=== PATIENT | male | born 1950 | race Caucasian/White ===

== ENCOUNTER 2016-12-23 20:34 | Emergency (ER) | payer MEDICARE, OTHER ==
[2016-12-23 20:45] VITALS: BP 157/66
[2016-12-23] MEDS: Triamcinolone 0.5% OINT * 15 GM TUBE TOPICAL ONE ×2 (22:28→22:34)
--- NOTE | 2016-12-23 22:34 | ED ---
Skin Complaint - HPI Summary HPI Summary: Patient presents to ED with bilateral arm redness, mild pain, slight pruritis and some blistering after sun exposure 3 days ago. Patient is currently on week 3 of doxycycline for lyme rash and was told to avoid the sun. However, he spent a few hours in the sun days ago and did not use sun protection. Denies rash in other areas. Denies soap changes, medications changes, allergies or other known reactions. He denies exposure to known carito or oak. He has not been using anything for pain and inflammation. He is currently on several heart medications s/p heart surgery and cannot take ibuprofen. He has not done a thorough skin check since dx but remains outdoors often. He has never had a reaction like this before. Denies hx of skin cancer. - History of Current Complaint Chief Complaint: EDRashSkinAbscess Time Seen by Provider: 12/23/16 21:36 Stated Complaint: RASH ON ARMS Hx Obtained From: Patient Onset/Duration: Started Days Ago Skin Exposure Onset/Duration: Days Ago Timing: Constant Onset Severity: Moderate Current Severity: Moderate Pain Intensity: 8 Pain Scale Used: 0-10 Numeric Skin Location: Discrete, Arm Character: Pruritus, Pain, Hives, Raised Aggravating Symptom(s): Nothing Alleviating Symptom(s): Cold Compresses Associated Signs & Symptoms: Tenderness Related History: Insect Bite/Sting, Possible Reaction to: Environmental Exposure - Allergy/Home Medications Allergies/Adverse Reactions: Allergies Allergy/AdvReac Type Severity Reaction Status Date / Time NSAIDs AdvReac See Comment Verified 12/23/16 22:21 PNEUMOCOCCAL VACINE Allergy Rash Uncoded 12/23/16 22:21 PMH/Surg Hx/FS Hx/Imm Hx Previously Healthy: Yes Endocrine/Hematology History: Denies: Hx Diabetes, Hx Thyroid Disease Cardiovascular History: Reports: Hx Angina - 4 YEARS AGO, Hx Cardiomegaly, Hx Congestive Heart Failure - BETTER SINCE CARDIAC ABLATION IN 2008 & 2009, Hx Coronary Artery Disease - CHOLESTEROL CONTROL WITH MEDICATION, Hx Hypertension - CONTROL WITH MEDICATION, Hx Rheumatic Fever - AGE 11, Hx Valvular Heart Disease - AORTIC VALVE REPLACEMENT AND RECONSTRUCTION - 2001 Denies: Hx Pacemaker/ICD Comment Only: Hx Peripheral Vascular Disease - POSSIBLE Respiratory History: Denies: Hx Asthma, Hx Chronic Obstructive Pulmonary Disease (COPD) GI History: Reports: Hx Ulcer - IN THE PAST, NO PROBLEMS NOW History: Reports: Hx Kidney Stones, Other Problems/Disorders - ENLARGE PROSTATE Musculoskeletal History: Reports: Hx Arthritis - BACK, Hx Bursitis - LEFT ELBOW - NO PROBLEMS NOW Sensory History: Reports: Hx Cataracts - HISTORY OF Denies: Hx Contacts or Glasses, Hx Hearing Aid Opthamlomology History: Reports: Hx Cataracts - HISTORY OF Denies: Hx Contacts or Glasses Psychiatric History: Reports: Hx Depression Denies: Hx Panic Disorder - Surgical History Surgery Procedure, Year, and Place: AORTIC VALVE REPLACEMENT AND RECONSTRUCTION , 2001, [facility]- (pt bringing the card - safe for 1.5t). RIGHT CATARACT SURGERY WITH IOL IMPLANT, 2002, [facility] [place] [facility]. LAPAROSCOPIC CHOLECYSTECTOMY, 2009 [facility]. LEFT CATARACT SURGERY WITH IOL IMPLANT, 2010, [facility] [place]. RIGHT CARDIAC ABLATION, 2008, [facility]. LEFT CARDIAC ABLATION, 2009, [facility] Hx Anesthesia Reactions: No - Immunization History Hx Pertussis Vaccination: No Immunizations Up to Date: Unable to Obtain/Confirm Infectious Disease History: No Infectious Disease History: Denies: Hx Hepatitis, Hx Human Immunodeficiency Virus (HIV), Traveled Outside the US in Last 30 Days - Family History Known Family History: Positive: Cardiac Disease, Hypertension - Social History Occupation: Unemployed Lives: With Family Alcohol Use: None Hx Substance Use: No Substance Use Type: Reports: None Hx Tobacco Use: No Smoking Status (MU): Former Smoker Review of Systems Constitutional: Negative Eyes: Negative Cardiovascular: Negative Respiratory: Negative Genitourinary: Negative Positive: no symptoms reported, see HPI Positive: Rash Neurological: Negative Psychological: Normal All Other Systems Reviewed And Are Negative: Yes Physical Exam Triage Information Reviewed: Yes Vital Signs On Initial Exam: Initial Vitals Temp Pulse Resp BP Pulse Ox 97.4 F 68 16 157/66 96 12/23/16 20:40 12/23/16 20:40 12/23/16 20:40 12/23/16 20:40 12/23/16 20:40 Vital Signs Reviewed: Yes Appearance: Positive: Well-Appearing, Well-Nourished Skin: Positive: Warm, Skin Color Reflects Adequate Perfusion, Other - erythematous blanchable confluent areas bilaterally over dorsum of forearms with mild blistering. Pruritis and mild pain Head/Face: Positive: Normal Head/Face Inspection Eyes: Positive: EOMI, LISSET, Conjunctiva Clear Neck: Positive: Supple, Nontender, No Lymphadenopathy Respiratory/Lung Sounds: Positive: Clear to Auscultation, Breath Sounds Present Cardiovascular: Positive: Normal, RRR, Pulses are Symmetrical in both Upper and Lower Extremities Musculoskeletal: Positive: Normal, Strength/ROM Intact Neurological: Positive: Alert, Oriented to Person Place, Time, Speech Normal Psychiatric: Positive: Normal AVPU Assessment: Alert - Libra Coma Scale Best Eye Response: 4 - Spontaneous Best Motor Response: 6 - Obeys Commands Best Verbal Response: 5 - Oriented Diagnostics - Vital Signs Vital Signs Temp Pulse Resp BP Pulse Ox 12/23/16 22:20 97.4 F 68 16 157/66 96 12/23/16 20:40 97.4 F 68 16 157/66 96 - Laboratory Lab Statement: Any lab studies that have been ordered have been reviewed, and results considered in the medical decision making process. Course/Dx - Course Course Of Treatment: erythematous blanchable confluent areas bilaterally over dorsum of forearms with mild blistering. Pruritis and mild pain. Patient is currently taking doxycylcline and sustained a sunburn. Prednisone given x 4 days, triamcinalone cream. Encouraged OTC benadryl or other antihistamine only if itching remains. - Differential Diagnoses - Skin Complaint Differential Diagnoses: Drug Rash, Local Allergic Reaction, Urticaria - Diagnoses Provider Diagnoses: Sun exposure, moderate Discharge - Discharge Plan Condition: Stable Disposition: HOME Prescriptions: predniSONE TAB* [Deltasone TAB*] 50 mg PO DAILY #4 tab Patient Education Materials: Doxycycline (By mouth), Photosensitivity (ED), Cold Compress or Soak (ED) Referrals: Mariluz Clifton MD [Primary Care Provider] - Additional Instructions: You have been dx with photosensitivity from a reaction to your doxycycline. Continue to perform skin check daily and dislodge any ticks with tweezers Traimacinalone cream to the area twice daily until symptoms resolve or for 5 days If you develop itching not controlled with the ointment, you may take a benadryl - but do not drive on this medication Prednisone daily for 4 days
== END 2016-12-23 22:32 | disposition home or self-care (01) ==
LOC: ED 20:34
DX: R21 Rash and other nonspecific skin eruption (principal); M79.602 Pain in left arm; L50.9 Urticaria, unspecified; M79.601 Pain in right arm; X32.XXXA Exposure to sunlight, initial encounter; Z87.891 Personal history of nicotine dependence
CPT/HCPCS: 99281; A9270-GY

== ENCOUNTER 2019-02-22 13:01 | Emergency (ER) | payer MEDICARE, OTHER ==
--- OUTSIDE RECORDS SUMMARY | 2019-02-22 13:15 | XMS REPORT | Summary of Care ---
:1950 Author Organization [facility] Address [address] [place] [address] Care Team Providers Name Role Phone Mariluz Clifton MD Primary Care Provider Reason for Visit Reason Comments Follow Up 6mon f/u paroxysmal atrial fibrillation, pt state he is feeling well Encounter Details Date Type Department Care Team Description 02/08/2019 Office Visit Amber Schwarz, Paroxysmal atrial fibrillation (HCC) (Primary Dx); Cardiology [facility] ASHD (arteriosclerotic heart disease); [address] [facility] [address]; [place] [address] [place] [id number] Essential hypertension; [phone] Dyslipidemia Allergies Active Allergy Reactions Severity Noted Date Comments Allergy Other 02/25/2016 C-Diff. W/ antibiotics Pneumococcal Vaccines Rash 12/24/2008 Rash at injection site documented as of this encounter (statuses as of 02/08/2019) Medications Medication Sig Dispensed Refills Start Date End Date Status finasteride (PROSCAR) 5 Take 5 mg by 0 Active MG Oral Tab mouth DAILY. escitalopram (LEXAPRO) 5 Take 10 mg by 0 Active MG Oral Tab mouth DAILY. atorvastatin (LIPITOR) Take 1 Tab by 90 Tab 3 09/05/2014 Active 40 MG Oral Tab mouth DAILY. meclizine (ANTIVERT) 25 Take 25 mg by 0 Active MG Oral Tab mouth THREE TIMES DAILY NEEDED. allopurinol (ZYLOPRIM) Take 100 mg by 0 Active 100 MG Oral Tab mouth DAILY. OXYcodone Take 5 mg by 0 Active (OXY-IR,OXY-FAST) 5 MG mouth NEEDED. Oral Tab Cholecalciferol (VITAMIN Take by mouth 0 Active D-3) 1000 UNITS Oral Cap DAILY. carvedilol (COREG) 25 MG Take 25 mg by 60 Tab 0 06/11/2016 Active Oral Tab mouth TWO TIMES DAILY WITH MEALS. lisinopril (PRINIVIL, Take 5 mg by 0 Active ZESTRIL) 5 MG Oral Tab mouth DAILY. aspirin (ECOTRIN) 81 MG Take 81 mg by 0 Active Oral Tab EC mouth DAILY. warfarin (COUMADIN) 5 MG Take 5 mg by 0 Active Oral Tab mouth DIRECTED. nitroglycerin Place 1 Tab 25 Tab 0 02/02/2018 Active (NITROSTAT) 0.4 MG under tongue Sublingual SL Tab EVERY FIVE MINUTES NEEDED for chest pain. documented as of this encounter (statuses as of 02/08/2019) Active Problems Problem Noted Date URI (upper respiratory infection) 10/14/2016 History of heart valve replacement 10/14/2016 Long-term (current) use of anticoagulants 10/14/2016 Gout 08/07/2015 BMI 30.0-30.9,adult 06/12/2013 Aortic insufficiency 02/04/2011 Overview: 12/29/01 () Aortic root replacement with #29 [employer]onic-Hayden Hemashield conduit on cardiopulmonary bypass with reimplantation of the coronary arteries ASHD (arteriosclerotic heart disease) 02/04/2011 Overview: 11/30/08 Cath () Moderate disease affecting all three coronary vessels Atrial fibrillation 01/14/2009 Overview: 11/27/08 () Pulmonary vein ablation 08/06/08 () Electrocardioversion; Dilated cardiomyopathy 09/27/2008 Overview: Ejection fraction is about 30%. Atrial flutter 08/20/2004 Unspecified pleural effusion 08/22/2003 HTN (hypertension) 08/22/2003 Other and unspecified hyperlipidemia 08/22/2003 Personal history of tobacco use, presenting hazards to health 08/22/2003 Thoracic aneurysm without mention of rupture 08/22/2003 Personal history of urinary calculi 08/22/2003 documented as of this encounter (statuses as of 02/08/2019) Resolved Problems Problem Noted Date Resolved Date Cardiomyopathy 02/04/2011 02/04/2011 Overview: Ejection fraction is about 30%. 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 02/04/2011 Heart disease, unspecified 08/22/2003 02/04/2011 documented as of this encounter (statuses as of 02/08/2019) Immunizations Name Administration Dates Next Due PNEUMOCOCCAL POLYSACCHARIDE VACCINE 12/01/2008 documented as of this encounter Social History Tobacco Use Types Packs/Day Years Used Date Former Smoker Cigarettes 1 10 Quit: 07/25/1980 Smokeless Tobacco: Never Used Alcohol Use Drinks/Week oz/Week Comments No 0 Standard drinks or equivalent 0.0 Sex Assigned at Date Recorded Not on file Job Start Date Occupation Industry Not on file Not on file Not on file Travel History Travel Start Travel End No recent travel history available. documented as of this encounter Last Filed Vital Signs Vital Sign Reading Time Taken Comments Blood Pressure 118/60 02/08/2019 11:02 AM EDT Pulse 62 02/08/2019 11:02 AM EDT Temperature - - Respiratory Rate - - Oxygen Saturation - - Inhaled Oxygen Concentration - - Weight 87.5 kg (193 lb) 02/08/2019 11:02 AM EDT Height 167.6 cm (5' 6") 02/08/2019 11:02 AM EDT Body Mass Index 31.15 02/08/2019 11:02 AM EDT documented in this encounter Patient Instructions Patient InstructionsHuAmber martinez CRNP - 02/08/2019 11:00 AM EDTContinue to follow blood work with [facility]. Follow up in 6 months, or sooner if there are any changes in your symptoms. Continue with strict risk factor modification; especially increasing cardiovascular activity, low fat low cholesterol diet and weight management. Would like to see Blood pressure less than 130/80 and trying to keep LDL less than 70. Any further questions or concerns contact our office. documented in this encounter Plan of Treatment Name Type Priority Associated Diagnoses Order Schedule AMBULATORY 12 LEAD EKG EKG Routine Paroxysmal atrial Ordered: 02/08/2019 (GLOBAL) fibrillation (HCC) COMPREHENSIVE METABOLIC Lab Routine Paroxysmal atrial Expected: 02/08/2019 PANEL fibrillation (HCC) (Approximate), Dyslipidemia Expires: 02/09/2020 LIPID PROFILE Lab Routine Paroxysmal atrial Expected: 02/08/2019 fibrillation (HCC) (Approximate), Dyslipidemia Expires: 02/09/2020 Health Maintenance Due Date Last Done Comments MEDICARE ANNUAL WELLNESS 1950 VISIT DEPRESSION SCREENING 1960 HIV SCREENING 1963 HEPATITIS C SCREENING 1988 ZOSTER IMMUNIZATION SERIES 1998 (1 of 2) FALL RISK ASSESSMENT 2013 PNEUMOCOCCAL 65+YRS (1 of 2 2013 12/01/2008 - PCV13) DIABETES SCREENING 02/02/2019 02/02/2018, 11/02/2016, 11/02/2016, Additional history exists LIPID DISORDER SCREENING 02/02/2019 02/02/2018, 07/26/2014, 08/14/2011, Additional history exists INFLUENZA VACCINE (#1) 2019 04/22/2017, 03/22/2016 COLONOSCOPY SCREENING 01/13/2022 01/13/2017, 01/13/2017 AAA SCREENING/SURVEILLANCE Completed 02/25/2016 HPV IMMUNIZATION SERIES Aged Out No longer eligible based on patient's age to complete this topic MENINGOCOCCAL VACCINE IMM Aged Out No longer eligible based on patient's age to complete this topic documented as of this encounter Implants Implanted Type Area Welder Apprentice Device Shelf Model / Identifier Expiration Serial / Date Lot Hayden Valved Collagen Conduit-12/29/2001 Valve Heart [employer] [id number] / Implanted: Qty: 1 on 12/29/2001 by Umberto Acuña MD Aortic [id number] / Description:MRI safe up to 3T documented as of this encounter Results Not on filedocumented in this encounter Visit Diagnoses Diagnosis Paroxysmal atrial fibrillation (HCC) - Primary Atrial fibrillation ASHD (arteriosclerotic heart disease) Coronary atherosclerosis of unspecified type of vessel, pechanga or graft S/P AVR Heart valve replaced by other means Essential hypertension Unspecified essential hypertension Dyslipidemia Other and unspecified hyperlipidemia documented in this encounter Insurance Payer Benefit Plan / Subscriber ID Effective Dates Phone Address Type Group MEDICARE MEDICARE PART A xxxxxxxxxxx Effective for Medicare & B all dates AETNA COMMERCIAL AETNA xxxxxxxxxx Effective for Aetna all dates Guarantor Name Account Type Relation to Date of Phone Billing Patient Address [place] Personal/Family 1950 [address] [phone] [place], [place] (Work) [id number] documented as of this encounter
[2019-02-22 13:41] LABS: ABS Eosinophils 0.1 10^3/ul (0-0.6); ABS Monocytes 0.5 10^3/ul (0-0.8); Hematocrit 40 % (42-52); Hemoglobin 13.4 g/dL (14.0-18.0); Lymphocyte % 21.2 %; Mean Corpuscular HGB Conc 34 g/dL (31-36); Mean Corpuscular Hemoglobin 29 pg (27-31); Mean Corpuscular Volume 86 fL (80-94); Mean Platelet Volume 6.5 fL (7.4-10.4); Platelet Count 173 10^3/uL (150-450); Red Blood Count 4.59 10^6 /uL (4.18-5.48); Red Cell Distribution Width 16 % (10-15); White Blood Count 4.5 10^3/uL (3.5-10.8)
[2019-02-22 14:00] LABS: Albumin 4.2 g/dL (3.2-5.2); Albumin/Globulin Ratio 1.6 (1-3); BUN/Creatinine Ratio 20.2 (8-20); Calcium 9.5 mg/dL (8.6-10.3); EGFR African American 102.3 (>60); EGFR Non-African American 84.5 (>60); Globulin 2.6 g/dL (2-4); Potassium 4.3 mmol/L (3.5-5.0); Total Bilirubin 1.4 mg/dL (0.2-1.0); Total Protein 6.8 g/dL (6.4-8.9)
[2019-02-22 15:25] LABS: Urine Appearance Clear; Urine Bilirubin Negative (Negative); Urine Blood Negative (Negative); Urine Color Yellow; Urine Glucose Negative (Negative); Urine Ketones Negative (Negative); Urine Nitrite Negative (Negative); Urine Protein Negative (Negative); Urine Specific Gravity 1.018 (1.010-1.030); Urine Urobilinogen Negative (Negative)
[2019-02-22] MEDS ORDERED: Acetaminophen TAB* 325 MG PO ONE (15:36)
--- NOTE | 2019-02-22 15:38 | ED ---
Abdominal Pain/Male - HPI Summary HPI Summary: This patient is a 68 year old M presenting to [facility] accompanied by his with a chief complaint of constant lower ABD pain since 3 weeks ago. Pt states this pain radiates to his back. PMHx of HTN and kidney stones. The patient rates the pain 10/10 in severity. Symptoms aggravated by starting movement. Symptoms alleviated by rest. Patient denies fever, chills, nausea, vomiting, diarrhea, constipation, dysuria, hematuria, testicular pain. Medications reviewed. Allergies noted. Pt does not smoke, drink alcohol, or use drugs. - History of Current Complaint Chief Complaint: EDFlankPain Stated Complaint: LOWER ABD/FLANK PAIN PER PT Time Seen by Provider: 02/22/19 15:11 Hx Obtained From: Patient Onset/Duration: Sudden Onset, Lasting Weeks - 3, Still Present Timing: Constant Severity Initially: Severe Severity Currently: Severe Pain Intensity: 10 Pain Scale Used: 0-10 Numeric Radiates: Yes Radiates to: Back Aggravating Factor(s): Other: - starting movement Alleviating Factor(s): Other: - rest Associated Signs And Symptoms: Positive: Other - positive - lower ABD pain. negative - chills, constipation, dysuria, hematuria, testicular pain.. Negative : Fever, Nausea, Vomiting, Diarrhea - Allergies/Home Medications Allergies/Adverse Reactions: Allergies Allergy/AdvReac Type Severity Reaction Status Date / Time MS NSAIDs [NSAIDs] AdvReac See Comment Verified 12/23/16 22:21 PNEUMOCOCCAL VACINE Allergy Rash Uncoded 12/23/16 22:21 Home Medications: Home Medications Cholecalciferol (Vitamin D3) [Vitamin D3] 2,000 unit PO QAM 02/22/19 [History Confirmed 02/22/19] Escitalopram * [Lexapro *] 10 mg PO QPM 02/22/19 [History Confirmed 02/22/19] Warfarin TAB(*) [Coumadin TAB(*)] 2.5 mg PO MOWE 02/22/19 [History Confirmed 05/02] oxyCODONE TAB* [Roxycodone TAB 5 mg*] 5 mg PO Q6H PRN 02/22/19 [History Confirmed 02/22/19] PMH/Surg Hx/FS Hx/Imm Hx Previously Healthy: No Endocrine/Hematology History: Denies: Hx Diabetes, Hx Thyroid Disease Cardiovascular History: Reports: Hx Angina - 4 YEARS AGO, Hx Cardiomegaly, Hx Congestive Heart Failure - BETTER SINCE CARDIAC ABLATION IN 2008 & 2009, Hx Coronary Artery Disease - CHOLESTEROL CONTROL WITH MEDICATION, Hx Hypertension - CONTROL WITH MEDICATION, Hx Rheumatic Fever - AGE 11, Hx Valvular Heart Disease - AORTIC VALVE REPLACEMENT AND RECONSTRUCTION - 2001 Denies: Hx Pacemaker/ICD Comment Only: Hx Peripheral Vascular Disease - POSSIBLE Respiratory History: Denies: Hx Asthma, Hx Chronic Obstructive Pulmonary Disease (COPD) GI History: Reports: Hx Ulcer - IN THE PAST, NO PROBLEMS NOW History: Reports: Hx Kidney Stones, Other Problems/Disorders - ENLARGE PROSTATE Musculoskeletal History: Reports: Hx Arthritis - BACK, Hx Bursitis - LEFT ELBOW - NO PROBLEMS NOW Sensory History: Reports: Hx Cataracts - HISTORY OF Denies: Hx Contacts or Glasses, Hx Hearing Aid Opthamlomology History: Reports: Hx Cataracts - HISTORY OF Denies: Hx Contacts or Glasses Psychiatric History: Reports: Hx Depression Denies: Hx Panic Disorder - Surgical History Surgical History: Yes Surgery Procedure, Year, and Place: AORTIC VALVE REPLACEMENT AND RECONSTRUCTION , 2001, [facility]- (pt bringing the card - safe for 1.5t). RIGHT CATARACT SURGERY WITH IOL IMPLANT, 2002, [facility]. LAPAROSCOPIC CHOLECYSTECTOMY, 2009 [facility]. LEFT CATARACT SURGERY WITH IOL IMPLANT, 2010, [facility]. RIGHT CARDIAC ABLATION, 2008, [facility]. LEFT CARDIAC ABLATION, 2009, [facility] Hx Anesthesia Reactions: No Infectious Disease History: No Infectious Disease History: Denies: Hx Hepatitis, Hx Human Immunodeficiency Virus (HIV), Traveled Outside the US in Last 30 Days - Family History Known Family History: Positive: Cardiac Disease, Hypertension - Social History Alcohol Use: None Hx Substance Use: No Substance Use Type: Reports: None Hx Tobacco Use: No Smoking Status (MU): Former Smoker Review of Systems Negative: Fever, Chills Positive: Abdominal Pain - lower ABD pain radiating to his back. Negative: Vomiting, Diarrhea, Nausea Genitourinary: Other - negative - constipation, testicular pain Negative: dysuria, hematuria All Other Systems Reviewed And Are Negative: Yes Physical Exam - Summary Physical Exam Summary: Constitutional: Well-developed, Well-nourished, Alert. (-) Distressed Skin: Warm, Dry HENT: Normocephalic; Atraumatic Eyes: Conjunctiva normal Neck: Musculoskeletal ROM normal neck. (-) JVD, (-) Stridor, (-) Tracheal deviation Cardio: Rhythm regular, rate normal, Heart sounds normal; Intact distal pulses; The pedal pulses are 2+ and symmetric. Radial pulses are 2+ and symmetric. (-) Murmur Pulmonary/Chest wall: Effort normal. (-) Respiratory distress, (-) Wheezes, (-) Rales Abd: Soft, (-) tenderness, (-) Distension, (-) Guarding, (-) Rebound Musculoskeletal: (-) Edema. Right paraspinal tenderness. Pain when he sat up from lying position. Lymph: (-) Cervical adenopathy Neuro: Alert, Oriented x3 Psych: Mood and affect Normal Triage Information Reviewed: Yes Vital Signs On Initial Exam: Initial Vitals Temp Pulse Resp BP Pulse Ox 98.0 F 65 14 154/80 96 02/22/19 13:03 02/22/19 13:03 02/22/19 13:03 02/22/19 13:03 02/22/19 13:03 Vital Signs Reviewed: Yes Diagnostics - Vital Signs Vital Signs Temp Pulse Resp BP Pulse Ox 02/22/19 15:15 61 170/72 96 02/22/19 15:14 61 96 02/22/19 14:59 98.3 F 63 18 137/72 94 02/22/19 13:03 98.0 F 65 14 154/80 96 - Laboratory Lab Results: Lab Results 02/22/19 02/22/19 02/22/19 Range/Units 13:32 13:32 15:15 WBC 4.5 (3.5-10.8) 10^3/uL RBC 4.59 (4.18-5.48) 10^6 /uL Hgb 13.4 L (14.0-18.0) g/dL Hct 40 L (42-52) % MCV 86 (80-94) fL MCH 29 (27-31) pg MCHC 34 (31-36) g/dL RDW 16 H (10-15) % Plt Count 173 (150-450) 10^3/uL MPV 6.5 L (7.4-10.4) fL Neut % (Auto) 66.1 % Lymph % (Auto) 21.2 % Upson % (Auto) 10.0 % Eos % (Auto) 2.0 % Baso % (Auto) 0.7 % Absolute Neuts (auto) 3.0 (1.5-7.7) 10^3/ul Absolute Lymphs (auto) 1.0 (1.0-4.8) 10^3/ul Absolute Monos (auto) 0.5 (0-0.8) 10^3/ul Absolute Eos (auto) 0.1 (0-0.6) 10^3/ul Absolute Basos (auto) 0.0 (0-0.2) 10^3/ul Absolute Nucleated RBC 0.0 10^3/ul Nucleated RBC % 0.0 Sodium 140 (135-145) mmol/L Potassium 4.3 (3.5-5.0) mmol/L Chloride 107 (101-111) mmol/L Carbon Dioxide 27 (22-32) mmol/L Anion Gap 6 (2-11) mmol/L BUN 18 (6-24) mg/dL Creatinine 0.89 (0.67-1.17) mg/dL Est GFR ( Amer) 102.3 (>60) Est GFR (Non-Af Amer) 84.5 (>60) BUN/Creatinine Ratio 20.2 H (8-20) Glucose 136 H (70-100) mg/dL Calcium 9.5 (8.6-10.3) mg/dL Total Bilirubin 1.40 H (0.2-1.0) mg/dL AST 22 (13-39) U/L ALT 18 (7-52) U/L Alkaline Phosphatase 92 (34-104) U/L Total Protein 6.8 (6.4-8.9) g/dL Albumin 4.2 (3.2-5.2) g/dL Globulin 2.6 (2-4) g/dL Albumin/Globulin Ratio 1.6 (1-3) Urine Color Yellow Urine Appearance Clear Urine pH 6.0 (5-9) Ur Specific [place] 1.018 (1.010-1.030) Urine Protein Negative (Negative) Urine Ketones Negative (Negative) Urine Blood Negative (Negative) Urine Nitrate Negative (Negative) Urine Bilirubin Negative (Negative) Urine Urobilinogen Negative (Negative) Ur Leukocyte Esterase Negative (Negative) Urine Glucose Negative (Negative) Result Diagrams: 02/22/19 13:32 02/22/19 13:32 Lab Statement: Any lab studies that have been ordered have been reviewed, and results considered in the medical decision making process. - CT Abd/Pel CT Interpretation Completed By: Radiologist Summary of CT Findings: IMPRESSION: BILATERAL PUNCTATE NONOBSTRUCTING RENAL CALYCEAL STONES. These findings were reviewed by Dr. Patiño. Abdominal Pain Male Course/Dx - Course Course Of Treatment: Patient is here with right flank pain that runs into his groin. Upon arrival, patient has a overall benign exam onset of pain in his lower back with movement. Patient had negative CBC, CMP, UA for any abnormality. Patient had negative CT scan for nephrolithiasis or abdominal aortic aneurysm. Patient was discharged with instructions take Tylenol and was prescribed lidocaine patches. - Diagnoses Provider Diagnoses: Low back pain, Flank pain Discharge ED - Sign-Out/Discharge Documenting (check all that apply): Patient Departure - discharge Patient Received Moderate/Deep Sedation with Procedure: No - Discharge Plan Condition: Stable Disposition: HOME Prescriptions: Lidocaine PATCH 5%* [Lidoderm 5% Patch*] 1 patch TRANSDERM DAILY 7 Days #7 patch Patient Education Materials: Low Back Strain (ED) Referrals: Mariluz Clifton MD [Primary Care Provider] - Additional Instructions: Please take Tylenol for pain Please use your prescribed lidocaine patches Please call your primary care doctor to set up appointment in the next 1-3 days Return if you have fever, worsening pain, difficulty going to the bathroom, vomiting, any other concerning symptoms - Billing Disposition and Condition Condition: STABLE Disposition: Home - Attestation Statements Document Initiated by Erma: Yes Documenting Scribe: Jeromy Ariza Provider For Whom Erma is Documenting (Include Credential): Dr. Brian Patiño MD Scribe Attestation: Jeromy Beal scribed for Dr. Brian Patiño MD on 02/22/19 at 1734. Scribe Documentation Reviewed: Yes Provider Attestation: The documentation as recorded by the Jeromy seo accurately reflects the service I personally performed and the decisions made by me, Dr. Brian Patiño MD Status of Scribe Document: Viewed
[2019-02-22 17:11] VITALS: BP 136/64
== END 2019-02-22 17:01 | disposition home or self-care (01) ==
LOC: ED 13:01
DX: M54.5 Low back pain (principal); R10.30 Lower abdominal pain, unspecified; N20.0 Calculus of kidney; I25.119 Atherosclerotic heart disease of native coronary artery with unspecified angina pectoris; I11.0 Hypertensive heart disease with heart failure; I50.9 Heart failure, unspecified; Z95.2 Presence of prosthetic heart valve; Z87.891 Personal history of nicotine dependence; Z79.01 Long term (current) use of anticoagulants; Z79.82 Long term (current) use of aspirin; Z79.899 Other long term (current) drug therapy; Z88.6 Allergy status to analgesic agent; Z88.7 Allergy status to serum and vaccine
CPT/HCPCS: 36415; 74176; 80053; 81003; 85025; 99283; A9270-GY

== ENCOUNTER 2020-03-26 19:28 | Inpatient (IN) ==
[2020-03-26 20:14] LABS: ABS Eosinophils 0.1 10^3/ul (0-0.6); ABS Monocytes 0.5 10^3/ul (0-0.8); ABS Neutrophils 3.1 10^3/ul (1.5-7.7); Eosinophil % 1.6 %; Hematocrit 37 % (42-52); Hemoglobin 12.8 g/dL (14.0-18.0); Lymphocyte % 21.3 %; Mean Corpuscular HGB Conc 35 g/dL (31-36); Mean Corpuscular Hemoglobin 30 pg (27-31); Mean Corpuscular Volume 87 fL (80-94); Mean Platelet Volume 6.4 fL (7.4-10.4); Platelet Count 161 10^3/uL (150-450); Red Blood Count 4.24 10^6 /uL (4.18-5.48); Red Cell Distribution Width 16 % (10-15); White Blood Count 4.7 10^3/uL (3.5-10.8)
[2020-03-26 20:28] LABS: INR 3.06 (0.82-1.09)
[2020-03-26 20:30] LABS: Albumin 4.1 g/dL (3.2-5.2); Albumin/Globulin Ratio 1.5 (1-3); BUN/Creatinine Ratio 28.8 (8-20); Calcium 9.1 mg/dL (8.6-10.3); EGFR African American 115.3 (>60); EGFR Non-African American 95.3 (>60); Globulin 2.8 g/dL (2-4); Potassium 3.9 mmol/L (3.5-5.0); Total Bilirubin 1.2 mg/dL (0.2-1.0); Total Protein 6.9 g/dL (6.4-8.9)
[2020-03-26] MEDS ORDERED: Iohexol 350 (CONTRAST) 500 ML MDV IV ONE (20:45)
[2020-03-27] MEDS ORDERED: hydrALAZINE 20 mg/ml 1 ML Vial IV IV SLOW PU ONE (00:14)
[2020-03-27] MEDS ORDERED: hydrALAZINE 20 mg/ml 1 ML Vial IV ONE (00:34)
[2020-03-27 04:29] LABS: Troponin I 0.02 ng/mL (<0.03)
[2020-03-27] MEDS ORDERED: Labetalol IV 5 MG/ML 20 ml VIAL IV PUSH ONE (04:58)
[2020-03-27 05:04] LABS: ABS Eosinophils 0.1 10^3/ul (0-0.6); ABS Lymphocytes 0.7 10^3/ul (1.0-4.8); ABS Monocytes 0.7 10^3/ul (0-0.8); ABS Neutrophils 4.3 10^3/ul (1.5-7.7); Eosinophil % 1.6 %; Hematocrit 39 % (42-52); Lymphocyte % 12.6 %; Mean Corpuscular HGB Conc 33 g/dL (31-36); Mean Corpuscular Hemoglobin 29 pg (27-31); Mean Corpuscular Volume 87 fL (80-94); Mean Platelet Volume 6.4 fL (7.4-10.4); Platelet Count 170 10^3/uL (150-450); Red Cell Distribution Width 16 % (10-15); White Blood Count 5.9 10^3/uL (3.5-10.8)
[2020-03-27 05:22] LABS: ALT 15 U/L (7-52); AST 19 U/L (13-39); Albumin/Globulin Ratio 1.4 (1-3); Alkaline Phosphatase 87 U/L (34-104); BUN/Creatinine Ratio 26.4 (8-20); Blood Urea Nitrogen 19 mg/dL (6-24); CO2 Carbon Dioxide 24 mmol/L (22-32); Calcium 9.1 mg/dL (8.6-10.3); Chloride 111 mmol/L (101-111); EGFR African American 130.2 (>60); EGFR Non-African American 107.6 (>60); Globulin 2.8 g/dL (2-4); Glucose 126 mg/dL (70-100); Magnesium 1.8 mg/dL (1.9-2.7); Phosphorus 2.1 mg/dL (2.5-5.0); Potassium 3.8 mmol/L (3.5-5.0); Sodium 135 mmol/L (135-145); Total Protein 6.8 g/dL (6.4-8.9)
[2020-03-27] MEDS ORDERED: Magnesium Sulfate IV 1GM/100ML 1 GM/100 ML BAG IV ONE (05:39)
[2020-03-27 05:41] LABS: INR 2.57 (0.82-1.09)
[2020-03-27 05:42] LABS: Activated Partial Thrombo Time 39.1 seconds (26.0-38.0)
[2020-03-27] MEDS: NS 0.9% 1000 ml BAG 1,000 ML IV SCH ×2 (05:53→20:16)
[2020-03-27] MEDS ORDERED: levETIRAcetam 1000MG IVPREMIX 1,000 MG/100 ML BAG IVPB ONE (06:56)
[2020-03-27] MEDS: Erythromycin OPTH OINT APPLIC OINT RIGHT EYE SCH ×3 (07:42→21:34)
[2020-03-27] MEDS: Cholecalciferol (VIT D3) 1,000 unit TAB PO SCH (08:45)
[2020-03-27] MEDS: Senna TAB 8.6 mg TAB PO SCH (08:45)
[2020-03-28 06:19] LABS: Activated Partial Thrombo Time 34.4 seconds (26.0-38.0); INR 1.97 (0.82-1.09)
[2020-03-28 06:22] LABS: Albumin 3.8 g/dL (3.2-5.2); Albumin/Globulin Ratio 1.4 (1-3); BUN/Creatinine Ratio 27.3 (8-20); Calcium 9.2 mg/dL (8.6-10.3); Globulin 2.8 g/dL (2-4); Potassium 4.5 mmol/L (3.5-5.0); Total Bilirubin 1.9 mg/dL (0.2-1.0); Total Protein 6.6 g/dL (6.4-8.9)
[2020-03-28] MEDS: levETIRAcetam 500 MG IVPREMIX 500 MG/100 ML BAG IV SCH ×2 (06:30→18:20)
[2020-03-28 08:14] LABS: ABS Lymphocytes 0.6 10^3/ul (1.0-4.8); ABS Monocytes 0.8 10^3/ul (0-0.8); ABS Neutrophils 6.1 10^3/ul (1.5-7.7); Eosinophil % 0.4 %; Hematocrit 36 % (42-52); Hemoglobin 12.4 g/dL (14.0-18.0); Lymphocyte % 8.2 %; Mean Corpuscular HGB Conc 34 g/dL (31-36); Mean Corpuscular Hemoglobin 30 pg (27-31); Mean Corpuscular Volume 87 fL (80-94); Platelet Count 152 10^3/uL (150-450); Red Blood Count 4.15 10^6 /uL (4.18-5.48); Red Cell Distribution Width 16 % (10-15); White Blood Count 7.6 10^3/uL (3.5-10.8)
[2020-03-28] MEDS: Erythromycin OPTH OINT APPLIC OINT RIGHT EYE SCH ×3 (08:26→20:12)
[2020-03-28] MEDS: Senna TAB 8.6 mg TAB PO SCH (08:26)
[2020-03-28] MEDS: Cholecalciferol (VIT D3) 1,000 unit TAB PO SCH (08:26)
[2020-03-28] MEDS: NS 0.9% 1000 ml BAG 1,000 ML IV SCH (11:26)
[2020-03-28] MEDS ORDERED: hydrALAZINE 20 mg/ml 1 ML Vial IV IV SLOW PU ONE ×2 (16:06→20:21)
[2020-03-28] MEDS ORDERED: hydrALAZINE 20 mg/ml 1 ML Vial IV ONE ×2 (16:09→20:10)
[2020-03-28] MEDS ORDERED: Ondansetron 4 mg VIAL 2 MG/ML 2 ml VIAL IV ONE (21:05)
[2020-03-28] MEDS ORDERED: Ondansetron 4 mg VIAL 2 MG/ML 2 ml VIAL ONE (21:06)
[2020-03-29] MEDS: NS 0.9% 1000 ml BAG 1,000 ML IV SCH ×3 (01:45→17:13)
[2020-03-29 04:14] LABS: ABS Lymphocytes 0.8 10^3/ul (1.0-4.8); ABS Monocytes 0.8 10^3/ul (0-0.8); ABS Neutrophils 6.8 10^3/ul (1.5-7.7); Eosinophil % 0.4 %; Hematocrit 36 % (42-52); Hemoglobin 12.7 g/dL (14.0-18.0); Lymphocyte % 9.3 %; Mean Corpuscular HGB Conc 35 g/dL (31-36); Mean Corpuscular Hemoglobin 30 pg (27-31); Mean Corpuscular Volume 87 fL (80-94); Mean Platelet Volume 6.5 fL (7.4-10.4); Platelet Count 170 10^3/uL (150-450); Red Blood Count 4.18 10^6 /uL (4.18-5.48); Red Cell Distribution Width 16 % (10-15); White Blood Count 8.5 10^3/uL (3.5-10.8)
[2020-03-29 04:32] LABS: Albumin 3.8 g/dL (3.2-5.2); Albumin/Globulin Ratio 1.3 (1-3); BUN/Creatinine Ratio 21.2 (8-20); Globulin 2.9 g/dL (2-4); Magnesium 1.7 mg/dL (1.9-2.7); Phosphorus 2.9 mg/dL (2.5-5.0); Potassium 4.1 mmol/L (3.5-5.0); Total Bilirubin 2.1 mg/dL (0.2-1.0); Total Protein 6.7 g/dL (6.4-8.9)
[2020-03-29] MEDS ORDERED: Magnesium Sulfate IV 1GM/100ML 1 GM/100 ML BAG IV ONE ×2 (04:36→08:38)
[2020-03-29] MEDS ORDERED: hydrALAZINE 20 mg/ml 1 ML Vial IV ONE (06:01)
[2020-03-29] MEDS ORDERED: hydrALAZINE 20 mg/ml 1 ML Vial IV IV SLOW PU ONE (06:01)
[2020-03-29] MEDS: levETIRAcetam 500 MG IVPREMIX 500 MG/100 ML BAG IV SCH ×2 (06:51→18:00)
[2020-03-29] MEDS ORDERED: Ondansetron 4 mg VIAL 2 MG/ML 2 ml VIAL IV ONE (06:53)
[2020-03-29] MEDS: Cholecalciferol (VIT D3) 1,000 unit TAB PO SCH (07:55)
[2020-03-29] MEDS: Senna TAB 8.6 mg TAB PO SCH (07:56)
[2020-03-29] MEDS: Erythromycin OPTH OINT APPLIC OINT RIGHT EYE SCH ×3 (07:56→22:07)
[2020-03-29] MEDS ORDERED: Esmolol 10 MG/ML IVPREMIX 2,500 MG/250 ML BAG IV SCH (12:00)
[2020-03-29] MEDS ORDERED: Acetaminophen IV 1 GM/100ML 0 ML IVPB SCH (13:30)
[2020-03-29] MEDS ORDERED: Acetaminophen IV 1 GM/100ML 100 ML IVPB ONE (14:22)
[2020-03-30] MEDS: levETIRAcetam 500 MG IVPREMIX 500 MG/100 ML BAG IV SCH ×2 (06:40→18:28)
[2020-03-30] MEDS: NS 0.9% 1000 ml BAG 1,000 ML IV SCH ×2 (07:53→21:55)
[2020-03-30] MEDS: Cholecalciferol (VIT D3) 1,000 unit TAB PO SCH (08:58)
[2020-03-30] MEDS: Erythromycin OPTH OINT APPLIC OINT RIGHT EYE SCH ×3 (08:59→20:42)
[2020-03-30] MEDS: Senna TAB 8.6 mg TAB PO SCH (08:59)
[2020-03-30] MEDS ORDERED: Acetaminophen IV 1 GM/100ML 100 ML IVPB ONE ×2 (10:02→16:30)
[2020-03-30 10:06] LABS: Activated Partial Thrombo Time 27.1 seconds (26.0-38.0)
[2020-03-30] MEDS ORDERED: Acetaminophen IV 1 GM/100ML 100 ML ONE (10:06)
[2020-03-30 21:14] LABS: INR 1.31 (0.82-1.09)
[2020-03-31] MEDS ORDERED: Acetaminophen IV 1 GM/100ML 100 ML IVPB ONE ×2 (03:00→14:31)
[2020-03-31] MEDS: levETIRAcetam 500 MG IVPREMIX 500 MG/100 ML BAG IV SCH ×2 (05:41→18:24)
[2020-03-31] MEDS ORDERED: Magnesium Sulfate 2 gm BAG 2 GM/50 ML BAG IVPB ONE (08:29)
[2020-03-31] MEDS: Cholecalciferol (VIT D3) 1,000 unit TAB PO SCH (09:11)
[2020-03-31] MEDS: Enoxaparin 40 MG/0.4 ML SYR SUBCUT SCH (09:12)
[2020-03-31] MEDS: Erythromycin OPTH OINT APPLIC OINT RIGHT EYE SCH ×3 (09:12→21:09)
[2020-03-31] MEDS: Senna TAB 8.6 mg TAB PO SCH (09:12)
[2020-03-31] MEDS: NS 0.9% 1000 ml BAG 1,000 ML IV SCH (09:37)
[2020-03-31 18:26] LABS: BUN/Creatinine Ratio 22.4 (8-20); Calcium 8.6 mg/dL (8.6-10.3); EGFR African American 167.1 (>60); EGFR Non-African American 138.1 (>60); Potassium 3.4 mmol/L (3.5-5.0)
[2020-03-31] MEDS: hydrALAZINE 20 mg/ml 1 ML Vial IV IV SLOW PU PRN (23:01)
[2020-04-01] MEDS: NS 0.9% 1000 ml BAG 1,000 ML IV SCH (00:31)
[2020-04-01] MEDS: hydrALAZINE 20 mg/ml 1 ML Vial IV IV SLOW PU PRN ×3 (04:50→18:59)
[2020-04-01] MEDS: levETIRAcetam 500 MG IVPREMIX 500 MG/100 ML BAG IV SCH ×2 (05:51→18:43)
[2020-04-01] MEDS: Senna TAB 8.6 mg TAB PO SCH (10:05)
[2020-04-01] MEDS: Cholecalciferol (VIT D3) 1,000 unit TAB PO SCH (10:05)
[2020-04-01] MEDS: Erythromycin OPTH OINT APPLIC OINT RIGHT EYE SCH ×3 (10:06→21:10)
[2020-04-01] MEDS: Enoxaparin 40 MG/0.4 ML SYR SUBCUT SCH (10:06)
[2020-04-01] MEDS ORDERED: Magnesium Sulfate 2 gm BAG 2 GM/50 ML BAG IVPB ONE (12:15)
[2020-04-01] MEDS ORDERED: Gadoteridol (CONTRAST) 279.3 MG/ML 10 ML IV ONE (13:33)
[2020-04-02] MEDS: levETIRAcetam 500 MG IVPREMIX 500 MG/100 ML BAG IV SCH (06:18)
[2020-04-02] MEDS: Cholecalciferol (VIT D3) 1,000 unit TAB PO SCH ×2 (06:22→07:09)
[2020-04-02] MEDS: Enoxaparin 40 MG/0.4 ML SYR SUBCUT SCH ×2 (06:23→07:09)
[2020-04-02] MEDS: Senna TAB 8.6 mg TAB PO SCH ×2 (06:23→07:10)
[2020-04-02] MEDS: Erythromycin OPTH OINT APPLIC OINT RIGHT EYE SCH ×4 (06:25→21:07)
[2020-04-03] MEDS: Cholecalciferol (VIT D3) 1,000 unit TAB PO SCH (09:04)
[2020-04-03] MEDS: Erythromycin OPTH OINT APPLIC OINT RIGHT EYE SCH (09:06)
[2020-04-03] MEDS: Enoxaparin 40 MG/0.4 ML SYR SUBCUT SCH (09:06)
[2020-04-03] MEDS: Senna TAB 8.6 mg TAB PO SCH (09:06)
[2020-04-03] MEDS: hydrALAZINE 20 mg/ml 1 ML Vial IV IV SLOW PU PRN (10:50)
[2020-04-03 11:38] VITALS: BP 151/70
== END 2020-04-03 12:13 | disposition home or self-care (01) | DRG 86 ==
LOC: ED 19:28 → ICU 23:02 → MEDTELE 04-01 14:34
PROVIDERS: ADMIT Internal Medicine; ATTEND Student in an Organized Health Care Education/Training Program

== ENCOUNTER 2020-09-08 07:42 | Inpatient (IN) ==
[2020-09-08] MEDS ORDERED: NS 0.9% 1000 ml BAG 1,000 ML IV ONE (07:49)
[2020-09-08 08:10] LABS: ABS Lymphocytes 0.5 10^3/ul (1.0-4.8); ABS Monocytes 0.4 10^3/ul (0-0.8); ABS Neutrophils 6.1 10^3/ul (1.5-7.7); Hematocrit 37 % (42-52); Hemoglobin 12.6 g/dL (14.0-18.0); Lymphocyte % 6.5 %; Mean Corpuscular HGB Conc 34 g/dL (31-36); Mean Corpuscular Hemoglobin 29 pg (27-31); Mean Corpuscular Volume 85 fL (80-94); Mean Platelet Volume 7.5 fL (7.4-10.4); Platelet Count 159 10^3/uL (150-450); Red Blood Count 4.38 10^6 /uL (4.18-5.48); Red Cell Distribution Width 16 % (10-15); White Blood Count 7.1 10^3/uL (3.5-10.8)
[2020-09-08 08:24] LABS: INR 4.48 (0.82-1.09)
[2020-09-08 08:27] LABS: ALT 15 U/L (7-52); AST 29 U/L (13-39); Albumin 3.6 g/dL (3.2-5.2); Albumin/Globulin Ratio 1.1 (1-3); Alkaline Phosphatase 69 U/L (34-104); Anion Gap 7 mmol/L (2-11); Blood Urea Nitrogen 22 mg/dL (6-24); CO2 Carbon Dioxide 25 mmol/L (22-32); Calcium 8.2 mg/dL (8.6-10.3); Chloride 102 mmol/L (101-111); Creatine Kinase 187 U/L (10-223); EGFR Non-African American 85.1 (>60); Globulin 3.3 g/dL (2-4); Glucose 143 mg/dL (70-100); Magnesium 1.8 mg/dL (1.9-2.7); Potassium 3.8 mmol/L (3.5-5.0); Sodium 134 mmol/L (135-145); Total Protein 6.9 g/dL (6.4-8.9)
[2020-09-08 08:30] LABS: Troponin I 0.02 ng/mL (<0.03)
[2020-09-08] MEDS ORDERED: Iohexol 350 (CONTRAST) 500 ML MDV IV ONE (08:35)
[2020-09-08 08:38] LABS: Alcohol, S < 10 mg/dL (<10)
[2020-09-08 08:54] LABS: TSH Ultra Thyroid Stim Horm 1.64 mcIU/mL (0.34-5.60)
[2020-09-08] MEDS ORDERED: Remdesivir 100 mg Vial 200 MG in NS 0.9% 250 ml 210 ML IV ONE (13:18)
[2020-09-08 13:57] LABS: LDH 548 U/L (140-271)
[2020-09-08] MEDS ORDERED: Albuterol HFA INHALER 8 gm MDI INH PRN (14:04)
[2020-09-08 17:29] LABS: Urine Appearance Clear; Urine Bilirubin Negative (Negative); Urine Blood Negative (Negative); Urine Color Yellow; Urine Glucose Negative (Negative); Urine Ketones Negative (Negative); Urine Nitrite Negative (Negative); Urine Protein Negative (Negative); Urine Specific Gravity > 1.030 (1.010-1.030); Urine Urobilinogen Negative (Negative)
[2020-09-08] MEDS ORDERED: NS 0.9% 1000 ml BAG 1,000 ML IV SCH (18:45)
[2020-09-09 06:56] LABS: ABS Lymphocytes 0.3 10^3/ul (1.0-4.8); ABS Monocytes 0.1 10^3/ul (0-0.8); ABS Neutrophils 2.7 10^3/ul (1.5-7.7); Hematocrit 36 % (42-52); Hemoglobin 12.3 g/dL (14.0-18.0); Lymphocyte % 9.3 %; Mean Corpuscular HGB Conc 34 g/dL (31-36); Mean Corpuscular Hemoglobin 29 pg (27-31); Mean Corpuscular Volume 86 fL (80-94); Mean Platelet Volume 7.3 fL (7.4-10.4); Platelet Count 161 10^3/uL (150-450); Red Blood Count 4.18 10^6 /uL (4.18-5.48); Red Cell Distribution Width 16 % (10-15); White Blood Count 3.2 10^3/uL (3.5-10.8)
[2020-09-09 07:16] LABS: Albumin 3.3 g/dL (3.2-5.2); Albumin/Globulin Ratio 1.1 (1-3); BUN/Creatinine Ratio 33.3 (8-20); Calcium 8.3 mg/dL (8.6-10.3); EGFR African American 129.8 (>60); EGFR Non-African American 107.3 (>60); Globulin 3.1 g/dL (2-4); Potassium 4.5 mmol/L (3.5-5.0); Total Bilirubin 0.8 mg/dL (0.2-1.0); Total Protein 6.4 g/dL (6.4-8.9)
[2020-09-09 07:17] LABS: INR 5.77 (0.82-1.09)
[2020-09-09] MEDS: Cholecalciferol (VIT D3) 1,000 unit TAB PO SCH (09:28)
[2020-09-09] MEDS: Remdesivir 100 mg Vial 100 MG in NS 0.9% 250 ml 230 ML IV SCH (21:30)
[2020-09-10] MEDS: Cholecalciferol (VIT D3) 1,000 unit TAB PO SCH (08:32)
[2020-09-10 10:47] LABS: ABS Lymphocytes 0.3 10^3/ul (1.0-4.8); ABS Monocytes 0.4 10^3/ul (0-0.8); ABS Neutrophils 8.9 10^3/ul (1.5-7.7); Hematocrit 37 % (42-52); Hemoglobin 12.5 g/dL (14.0-18.0); Lymphocyte % 3.4 %; Mean Corpuscular HGB Conc 34 g/dL (31-36); Mean Corpuscular Hemoglobin 29 pg (27-31); Mean Corpuscular Volume 86 fL (80-94); Mean Platelet Volume 7.4 fL (7.4-10.4); Platelet Count 246 10^3/uL (150-450); Red Blood Count 4.32 10^6 /uL (4.18-5.48); Red Cell Distribution Width 16 % (10-15); White Blood Count 9.6 10^3/uL (3.5-10.8)
[2020-09-10 10:56] LABS: INR 4.37 (0.82-1.09)
[2020-09-10 11:09] LABS: Albumin 3.6 g/dL (3.2-5.2); Albumin/Globulin Ratio 1.3 (1-3); BUN/Creatinine Ratio 46.7 (8-20); Calcium 8.6 mg/dL (8.6-10.3); EGFR African American 160.2 (>60); EGFR Non-African American 132.4 (>60); Globulin 2.8 g/dL (2-4); Total Bilirubin 0.8 mg/dL (0.2-1.0); Total Protein 6.4 g/dL (6.4-8.9)
[2020-09-10] MEDS: Remdesivir 100 mg Vial 100 MG in NS 0.9% 250 ml 230 ML IV SCH (21:42)
[2020-09-11 08:22] LABS: Albumin 3.3 g/dL (3.2-5.2); Albumin/Globulin Ratio 1.1 (1-3); BUN/Creatinine Ratio 39.4 (8-20); Calcium 8.7 mg/dL (8.6-10.3); EGFR Non-African American 109.1 (>60); Globulin 2.9 g/dL (2-4); Potassium 4.5 mmol/L (3.5-5.0); Total Bilirubin 0.8 mg/dL (0.2-1.0); Total Protein 6.2 g/dL (6.4-8.9)
[2020-09-11] MEDS: Cholecalciferol (VIT D3) 1,000 unit TAB PO SCH (08:38)
[2020-09-11 09:37] LABS: INR 4.24 (0.82-1.09)
[2020-09-11] MEDS: Remdesivir 100 mg Vial 100 MG in NS 0.9% 250 ml 230 ML IV SCH (21:29)
[2020-09-12 07:42] LABS: INR 3.98 (0.82-1.09)
[2020-09-12 07:53] LABS: Albumin 3.3 g/dL (3.2-5.2); Albumin/Globulin Ratio 1.2 (1-3); BUN/Creatinine Ratio 30.9 (8-20); Calcium 8.6 mg/dL (8.6-10.3); EGFR African American 113.3 (>60); EGFR Non-African American 93.7 (>60); Globulin 2.8 g/dL (2-4); Potassium 4.7 mmol/L (3.5-5.0); Total Protein 6.1 g/dL (6.4-8.9)
[2020-09-12] MEDS: Cholecalciferol (VIT D3) 1,000 unit TAB PO SCH (08:16)
[2020-09-12 13:44] VITALS: BP 108/52
== END 2020-09-12 16:40 | disposition home or self-care (01) | DRG 177 ==
LOC: ED 07:42 → MED 12:57
PROVIDERS: ADMIT Student in an Organized Health Care Education/Training Program; ATTEND Hospitalist

== ENCOUNTER 2023-11-26 08:54 | Observation (INO) ==
[~2023-11-26 08:54] MED LIST: Naloxone 0.4 mg VIAL 0.4 mg/ml 1 ml VIAL IV PRN; Ondansetron 4 mg VIAL 2 MG/ML 2 ml VIAL IV PRN; fentaNYL 100 mcg/2 ml 50 MCG/ML VIAL IV PRN
[2023-11-26 09:53] LABS: ABS Eosinophils 0.1 10^3/uL (0.0-0.5); ABS Lymphocytes 0.9 10^3/uL (1.0-4.8); ABS Monocytes 0.5 10^3/uL (0.0-1.1); ABS Neutrophils 3.7 10^3/uL (1.5-7.6); Eosinophil % 1.7 %; Hematocrit 39.7 % (38-53); Hemoglobin 13.5 g/dL (13.2-16.3); Lymphocyte % 17.4 %; Mean Corpuscular Hemoglobin 29.4 pg (27-33); Mean Corpuscular Volume 86.5 fL (80-97); Mean Platelet Volume 6.5 fL (7.5-11.2); Nucleated Red Blood Cells % 0.1 %/100WBC (0.0-0.8); Platelet Count 158 10^3/uL (150-450); Red Blood Count 4.59 10^6/uL (4.06-5.63); Red Cell Distribution Width 16.5 % (12-17); White Blood Count 5.2 10^3/uL (3.6-10.2)
[2023-11-26 09:59] LABS: INR 1.12 (0.83-1.13)
[2023-11-26] MEDS: Lactated Ringers 1000 ml BAG 1,000 ML IV SCH (10:21)
[2023-11-26 10:43] LABS: Creatinine, Serum 0.78 mg/dL (0.67-1.17); Potassium 4.4 mmol/L (3.5-5.0)
[2023-11-26] MEDS ORDERED: fentaNYL 250 mcg/5 ml 50 MCG/ML 5 ml VIAL (250 MCG) ONE (10:47)
[2023-11-26] MEDS ORDERED: Propofol 10 MG/ML 20 ML BTL ONE (10:47)
[2023-11-26] MEDS ORDERED: Rocuronium 50 mg VIAL 10 mg/ml 5 ml VIAL (50 mg) ONE ×2 (10:47→13:40)
[2023-11-26] MEDS ORDERED: Midazolam 2 mg/2 ml VIAL 1 mg/ml 2 ml VIAL (2 mg) ONE (10:47)
[2023-11-26] MEDS ORDERED: Lidocaine 2% PF 5 ML VIAL ONE (10:47)
[2023-11-26] MEDS ORDERED: Ondansetron 4 mg VIAL 2 MG/ML 2 ml VIAL ONE (14:00)
[2023-11-26] MEDS ORDERED: Dexamethasone IV 4 MG/ML VIAL 1 ml VIAL ONE (14:00)
[2023-11-26 16:42] LABS: Rapid COVID-19 Molecular Undetected (Undetected)
[2023-11-26] MEDS ORDERED: Senna TAB 8.6 mg TAB PO PRN (16:48)
[2023-11-26] MEDS ORDERED: Polyethylene Glycol 3350 17 GM PACKET PO PRN (16:48)
[2023-11-26] MEDS ORDERED: Ondansetron 4 mg VIAL 2 MG/ML 2 ml VIAL IV PRN (16:48)
[2023-11-26] MEDS ORDERED: Magnesium Hydroxide LIQ 30 ML UDC PO PRN (16:48)
[2023-11-26] MEDS: Buffered Lidocaine 1% SYRIN 1 ml INTRADERM ONE (19:58)
[2023-11-26] MEDS: NS 0.9% 1000 ml BAG 1,000 ML IV SCH (22:34)
[2023-11-27 07:44] LABS: INR 1.17 (0.83-1.13)
[2023-11-27 07:46] LABS: ABS Lymphocytes 0.5 10^3/uL (1.0-4.8); ABS Monocytes 0.6 10^3/uL (0.0-1.1); ABS Neutrophils 6.1 10^3/uL (1.5-7.6); ABS Nucleated RBC 0.01 10^3/ul; Hematocrit 35.2 % (38-53); Hemoglobin 11.9 g/dL (13.2-16.3); Lymphocyte % 7.4 %; Mean Corpuscular Hemoglobin 29.5 pg (27-33); Mean Corpuscular Hgb Conc 33.8 g/dL (31-36); Mean Corpuscular Volume 87.2 fL (80-97); Mean Platelet Volume 6.9 fL (7.5-11.2); Nucleated Red Blood Cells % 0.1 %/100WBC (0.0-0.8); Platelet Count 134 10^3/uL (150-450); Red Blood Count 4.03 10^6/uL (4.06-5.63); Red Cell Distribution Width 16.5 % (12-17); White Blood Count 7.2 10^3/uL (3.6-10.2)
[2023-11-27 08:01] LABS: Calcium 7.9 mg/dL (8.6-10.3); Creatinine, Serum 0.8 mg/dL (0.67-1.17); Potassium 4.7 mmol/L (3.5-5.0); eGFR CKD-EPI 92.3 (>60)
[2023-11-27 09:52] VITALS: BP 102/51
[2023-11-27] MEDS ORDERED: Warfarin DAILY REMINDER **NOTE FOLLOW UP SCH (17:00)
== END 2023-11-27 12:15 | disposition home or self-care (01) ==
LOC: MED 08:54 → OR 08:54 → SUATTDRO 15:38
PROVIDERS: ADMIT Student in an Organized Health Care Education/Training Program; ATTEND Hospitalist